=== PATIENT | female | born 1995 | race Caucasian/White ===

== ENCOUNTER 2017-03-21 14:54 | Emergency (ER) | payer OTHER ==
[~2017-03-21] VITALS: Ht 160 cm; Wt 72.1 kg
[2017-03-21 15:06] VITALS: BP 128/73
--- NOTE | 2017-03-21 16:07 | NUR ---
Pt taken to bed 7.
[2017-03-21] MEDS ORDERED: NACL 0.9% 1,000 ML IV ONE (16:15)
--- NOTE | 2017-03-21 16:24 | NUR ---
21/F sent from Dr. García's office for evaluation. Pt states approximately 2 months ago a pen broke off inside her vaginal while "messing around" with her boyfriend. Pt states she had seen her [facility] once before and they tried removing it but were unsuccessful. Pt was at the office again and they were unable to remove the plastic pen and now patient is having vaginal bleeding. Denies pain. Denies N/V/D. AOX4. Ambulatory with steady gait. Skin warm and dry, normal in color for ethnicity. VSS.
[2017-03-21 16:25] LABS: BASOPHILS # (AUTO) 0.2 K/uL (0.00-0.22); EOSINOPHILS # (AUTO) 0.1 K/uL (0-0.4); HEMATOCRIT 42.3 % (36-48); LYMPHOCYTES # (AUTO) 1.4 K/uL (2.5-16.5); MEAN CORPUSCULAR HEMOGLOBIN 29 pg (27-31); MEAN CORPUSCULAR HGB CONC 33 g/dL (33-37); MEAN CORPUSCULAR VOLUME 86 fL (80-94); MONOCYTES # (AUTO) 0.5 K/uL (0.8-1.0); NEUTROPHILS # (AUTO) 6.5 K/uL (1.8-7.7); PLATELET COUNT (AUTO) 238 K/uL (140-450); RED BLOOD CELL COUNT(AUTO) 4.89 MIL/uL (4.20-5.40); RED CELL DISTRIBUTION WIDTH 12.7 % (11.6-13.7); WHITE BLOOD COUNT (AUTO) 8.7 K/uL (4.5-11.0)
--- NOTE | 2017-03-21 16:32 | NUR ---
Patient being evaluated by Dr. Lanza at bedside.
[2017-03-21 16:35] LABS: ANION GAP 8.5 (8-16); CALCIUM 9.2 mg/dL (8.5-10.1); CARBON DIOXIDE 29.7 mmol/L (21-32); CREATININE 0.8 mg/dL (0.6-1.3); POTASSIUM 4.2 mmol/L (3.5-5.1)
[2017-03-21] MEDS ORDERED: LORazepam 2 MG/ML VIAL IVP ONE (16:35)
[2017-03-21 16:42] LABS: ALBUMIN 3.9 g/dL (3.4-5.0); TOTAL BILIRUBIN 0.3 mg/dL (0.0-1.0); TOTAL PROTEIN, SERUM 7.9 g/dL (6.4-8.2)
--- NOTE | 2017-03-21 17:08 | NUR ---
Patient appears to be resting comfortably in bed. VSS.
--- NOTE | 2017-03-21 17:14 | NUR ---
Last meal intake was approximately at 1200. Pt states she had a sandwich at [employer].
--- NOTE | 2017-03-21 17:15 | NUR ---
Pt moved to bed 8.
--- NOTE | 2017-03-21 17:34 | NUR ---
Dr. Lanza at bedside for pelvic exam, accompanied by nurse.
--- NOTE | 2017-03-21 17:36 | NUR ---
# 16 FR Winn catheter inserted utilizing sterile technique. Immediate return of 400 ml clear and yellow urine noted. F/C secured to right leg. Bedside drainage bag placed below level of bladder. Pt tolerated procedure well.
--- NOTE | 2017-03-21 17:57 | NUR ---
Patient appears to be resting comfortably in bed. VSS.
--- NOTE | 2017-03-21 18:08 | NUR ---
F/C removed. Pt tolerated well.
--- NOTE | 2017-03-21 18:09 | NUR ---
IV removed, catheter intact and site benign. Applied folded 4x4 gauze and tape to stop bleeding.
[2017-03-21 18:11] VITALS: BP 123/75
--- NOTE | 2017-03-21 18:12 | NUR ---
Patient discharged with v/s stable. Written and verbal after care instructions given and explained. Patient verbalized understanding. Ambulatory with steady gait. All questions addressed prior to discharge. Advised to follow up with PMD.
== END 2017-03-21 18:12 | disposition home or self-care (01) ==
LOC: MED 14:54
DX: T19.2XXA Foreign body in vulva and vagina, initial encounter (principal); R03.0 Elevated blood-pressure reading, without diagnosis of hypertension; X58.XXXA Exposure to other specified factors, initial encounter; Y93.89 Activity, other specified; Y92.89 Other specified places as the place of occurrence of the external cause; Y99.8 Other external cause status
CPT/HCPCS: 36415; 51702; 80053; 81025; 85025; 96361; 96374; 99285; J2060; J7030

== ENCOUNTER 2017-03-22 22:05 | Inpatient (IN) | payer OTHER ==
[~2017-03-22] VITALS: Ht 160 cm; Wt 72.1 kg
[2017-03-22 22:25] VITALS: BP 125/73
[2017-03-22] MEDS ORDERED: ACETAMINOPHEN EXTRA STRENGTH 500 MG TAB ONE (22:44)
[2017-03-23] MEDS ORDERED: KETOROLAC 30 MG/ML VIAL IVP ONE (00:30)
[2017-03-23] MEDS ORDERED: NACL 0.9% 1,000 ML IV ONE (00:30)
[2017-03-23 00:54] LABS: HEMATOCRIT 43.2 % (36-48); MEAN CORPUSCULAR HEMOGLOBIN 28 pg (27-31); MEAN CORPUSCULAR HGB CONC 32 g/dL (33-37); MEAN CORPUSCULAR VOLUME 86 fL (80-94); PLATELET COUNT (AUTO) 182 K/uL (140-450); RED CELL DISTRIBUTION WIDTH 13.1 % (11.6-13.7); WHITE BLOOD COUNT (AUTO) 10.7 K/uL (4.5-11.0)
[2017-03-23 01:09] LABS: BAND % (MANUAL) 17 % (0-8); LYMPHOCYTES % (MANUAL) 4 % (20-46); MONOCYTES % (MANUAL) 1 % (5-12); NEUTROPHILS % (MANUAL) 78 (43-65)
[2017-03-23 01:15] LABS: INR 1.2 (0.8-1.2); PROTHROMBIN TIME 12.1 secs (10.8-13.4)
[2017-03-23 01:19] LABS: ANION GAP 13.2 (8-16); CALCIUM 9.1 mg/dL (8.5-10.1); CARBON DIOXIDE 27.5 mmol/L (21-32); CREATININE 0.8 mg/dL (0.6-1.3); POTASSIUM 3.7 mmol/L (3.5-5.1)
[2017-03-23 01:29] LABS: APPEARANCE,URINE TURBID (CLEAR); BILIRUBIN,URINE NEGATIVE (NEGATIVE); BLOOD, URINE 3+ (NEGATIVE); LEUKOCYTE ESTERASE ,URINE 1+ (NEGATIVE); NITRITE, URINE POSITIVE (NEGATIVE); PH,URINE >=9.0 (5.0-9.0); PROTEIN,URINE 1+ (NEGATIVE); UGLUCOSE NEGATIVE (NEGATIVE)
[2017-03-23 01:30] LABS: ALBUMIN 3.9 g/dL (3.4-5.0); TOTAL BILIRUBIN 0.9 mg/dL (0.0-1.0)
[2017-03-23 01:52] LABS: COLOR,URINE REDDISH (YELLOW)
[2017-03-23 01:55] LABS: BACTERIA,URINE 4+ /HPF (None Seen); SQUAMOUS EPITHELIAL CELL,UR 0-3 (FEW) /LPF (0-3 (FEW))
[2017-03-23] MEDS ORDERED: CLINDAMYCIN 900 MG in DEXTROSE 5% 100 ML IV ONE (03:05)
[2017-03-23] MEDS ORDERED: CLINDAMYCIN 900 MG/6 ML VIAL IV ONE (03:17)
[2017-03-23] MEDS: DOXYCYCLINE 100 MG in DEXTROSE 5% 100 ML IV STA ×2 (03:32→03:38)
[2017-03-23] MEDS: LEVOFLOXACIN 750 MG/D5W PREMIX 150 ML IV ONE ×2 (03:33→03:52)
[2017-03-23] MEDS ORDERED: ONDANSETRON 4 MG/2 ML VIAL IVP PRN ×3 (03:50→14:20)
[2017-03-23] MEDS ORDERED: MORPHINE SULFATE 2 MG/ML SYR IVP PRN (03:50)
[2017-03-23] MEDS ORDERED: ACETAMINOPHEN 325 MG TAB PO PRN (03:50)
[2017-03-23] MEDS ORDERED: LORazepam 2 MG/ML VIAL IVP PRN (03:50)
[2017-03-23 04:25] VITALS: BP 112/71
[2017-03-23] MEDS: NACL 0.9% 1,000 ML IV SCH ×2 (04:38→17:00)
[2017-03-23] MEDS ORDERED: cefOXitin 2,000 MG in DEXTROSE 5% 100 ML IV SCH (06:45)
[2017-03-23] MEDS: HYDROcodone/APAP 5/325 MG 1 TAB TAB PO PRN ×2 (06:55→12:34)
[2017-03-23 08:00] VITALS: BP 112/68
[2017-03-23] MEDS ORDERED: ENOXAPARIN 40 MG/0.4 ML SYR SUBQ SCH (09:00)
[2017-03-23] MEDS ORDERED: DOXYCYCLINE 100 MG CAP PO SCH (09:00)
[2017-03-23] MEDS: cefOXitin 2,000 MG in DEXTROSE 5% 100 ML IV SCH ×2 (12:34→18:14)
[2017-03-23] MEDS ORDERED: PROPOFOL 200 MG/20 ML VIAL IV ONE (13:50)
[2017-03-23] MEDS ORDERED: ONDANSETRON 4 MG/2 ML VIAL ONE (13:50)
[2017-03-23] MEDS ORDERED: SEVOFLURANE 250 ML BTL INH ONE (13:50)
[2017-03-23] MEDS ORDERED: KETOROLAC 30 MG/ML VIAL ONE (13:50)
[2017-03-23] MEDS ORDERED: DEXAMETHASONE 4 MG/ML VIAL ONE (13:50)
[2017-03-23] MEDS ORDERED: IBUPROFEN 800 MG TAB PO PRN (14:00)
[2017-03-23] MEDS ORDERED: MORPHINE SULFATE 4 MG/ML SYR IM/IVP PRN (14:00)
[2017-03-23] MEDS ORDERED: ACETAMINOPHEN/CODEINE 300/30MG 1 TAB PO PRN (14:00)
[2017-03-23] MEDS ORDERED: HYDROmorphone 1 MG/ML AMP IVP PRN (14:20)
[2017-03-23 16:00] VITALS: BP 114/67
[2017-03-23] MEDS ORDERED: AMOX-999 PO (19:28)
== END 2017-03-23 20:10 | disposition home or self-care (01) | DRG 532 ==
LOC: MED 22:05 → MTU 03-23 03:50
PROVIDERS: ADMIT Hospitalist; ATTEND Hospitalist
PROC: 0UCGXZZ Extirpation of Matter from Vagina, External Approach (ICD-10-PCS; principal; 2017-03-23 14:00)
DX: T19.2XXA Foreign body in vulva and vagina, initial encounter (principal); N39.0 Urinary tract infection, site not specified; X58.XXXA Exposure to other specified factors, initial encounter; Y93.89 Activity, other specified; Y92.89 Other specified places as the place of occurrence of the external cause; Y99.8 Other external cause status
CPT/HCPCS: 36415; 80053; 81001; 81025; 83605; 85025; 85610; 86886; 86900; 86901; 87040; 87081; 87086; 96361; 96365; 96375; 99285; J0694; J1100; J1650; J1885; J1956; J2405; J2704; J3490; J7030; J7060